=== PATIENT | female | born 2000 | race Caucasian/White ===

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

== ENCOUNTER 2020-06-10 20:39 | Emergency (ER) | payer OTHER ==
[2020-06-10] MEDS ORDERED: SODIUM CHLORIDE 0.9% 1,000 ML IV STA (20:57)
--- NOTE | 2020-06-10 20:58 | ED ---
Female Urogenital HPI - General Chief complaint: Vaginal Bleeding Stated complaint: Vaginal bleeding Time Seen by Provider: 06/10/20 20:52 Source: patient Mode of arrival: ambulatory Limitations: no limitations - History of Present Illness Initial comments: 19-year-old female presenting to the emergency department with a chief complaint of a miscarriage. Patient states she saw her OB, Dr Eula Asencio, and had an ultrasound performed which revealed no heart tones. Patient states she was given the option of having a medication induced , D&C or natural. Patient states she wanted an uninterrupted and waited for the miscarriage to occur. Patient reports that yesterday she developed increased abdominal cramping. Patient reports it comes and goes in waves that lasts approximately 30 seconds. Patient reports there is also increased vaginal bleeding along with clots. Patient states she had an appointment today with her OB but missed the appointment. She did report some nausea but no vomiting. Does not have any vomiting at this time. Denies any urinary symptoms. - Related Data Home Medications Medication Instructions Recorded Confirmed Levothyroxine Sodium [Synthroid] 75 mcg PO DAILY 06/10/20 06/10/20 Previous Rx's Medication Instructions Recorded Cephalexin [Keflex] 500 mg PO BID 5 Days #10 cap 06/10/20 Allergies Allergy/AdvReac Type Severity Reaction Status Date / Time No Known Allergies Allergy Verified 06/10/20 21:56 Review of Systems ROS Statement: Those systems with pertinent positive or pertinent negative responses have been documented in the HPI. ROS Other: All systems not noted in ROS Statement are negative. Past Medical History Past Medical History: Thyroid Disorder Additional Past Medical History / Comment(s): prediabetic History of Any Multi-Drug Resistant Organisms: None Reported Past Surgical History: No Surgical Hx Reported Past Anesthesia/Blood Transfusion Reactions: Motion Sickness Past Psychological History: Anxiety, Depression, PTSD Smoking Status: Never smoker Past Alcohol Use History: None Reported Past Drug Use History: Marijuana - Past Family History Mother Family Medical History: Musculoskeletal Disorder Additional Family Medical History / Comment(s): multiple sclerosis General Exam Limitations: no limitations General appearance: alert, in no apparent distress, obese Head exam: Present: atraumatic, normocephalic, normal inspection Eye exam: Present: normal appearance, PERRL, EOMI Pupils: Present: normal accommodation ENT exam: Present: normal exam, normal oropharynx, mucous membranes moist, TM's normal bilaterally, normal external ear exam Neck exam: Present: normal inspection, full ROM. Absent: tenderness Respiratory exam: Present: normal lung sounds bilaterally. Absent: respiratory distress Cardiovascular Exam: Present: regular rate, normal rhythm, normal heart sounds GI/Abdominal exam: Present: soft, tenderness (Suprapubic tenderness to palpation). Absent: distended, guarding, rebound, rigid Extremities exam: Present: normal inspection, full ROM, normal capillary refill. Absent: tenderness, pedal edema, joint swelling Back exam: Present: normal inspection, full ROM. Absent: tenderness, CVA tenderness (R), CVA tenderness (L) Neurological exam: Present: alert, oriented X3 Psychiatric exam: Present: normal affect, normal mood Skin exam: Present: warm, dry, intact, normal color Course Vital Signs 06/10/20 06/10/20 20:41 23:00 Temperature 97.9 F 98.1 F Pulse Rate 81 79 Respiratory 18 18 Rate Blood Pressure 154/56 89/47 O2 Sat by Pulse 97 99 Oximetry Medical Decision Making - Medical Decision Making 19-year-old female, , 9 week presenting to the emergency department with a chief complaint of miscarriage. On physical examination, patient has suprapubic tenderness to palpation. Pelvic exam reveals an open cervical os but no visible contents. Mild to moderate amount of bleeding. CBC reveals no signs of anemia. CMP is unremarkable. UA does show large amount of blood, white blood cells and red blood cells. Ultrasound reveals a gestational sac seen in the cervical canal but not the fundus likely suggesting an incomplete . Patient did pass a large clot while in the emergency department. This was sent to pathology. Patient will be discharged with a Tylenol 3 starter pack which definitely helped improve her cramping pain. will treat for uti with keflex. Patient was advised to follow-up with her OB. Return parameters discussed the patient is understanding and agreeable. Case discussed with physician. - Lab Data Result diagrams: 06/10/20 21:06/10/20 21:20 Lab Results 06/10/20 06/10/20 06/10/20 Range/Units 21:20 21:20 21:20 WBC 10.8 (4.0-11.0) k/uL RBC 4.69 (3.80-5.40) m/uL Hgb 12.8 (11.4-16.0) gm/dL Hct 38.5 (34.0-46.0) % MCV 82.1 (80.0-100.0) fL MCH 27.3 (25.0-35.0) pg MCHC 33.3 (31.0-37.0) g/dL RDW 15.0 (11.5-15.5) % Plt Count 288 (150-450) k/uL MPV 7.8 Neutrophils % 67 % Lymphocytes % 26 % Monocytes % 4 % Eosinophils % 1 % Basophils % 1 % Neutrophils # 7.2 (1.3-7.7) k/uL Lymphocytes # 2.8 (1.0-4.8) k/uL Monocytes # 0.5 (0-1.0) k/uL Eosinophils # 0.2 (0-0.7) k/uL Basophils # 0.1 (0-0.2) k/uL Sodium 137 (137-145) mmol/L Potassium 4.4 (3.5-5.1) mmol/L Chloride 108 H (98-107) mmol/L Carbon Dioxide 22 (22-30) mmol/L Anion Gap 7 mmol/L BUN 7 (7-17) mg/dL Creatinine 0.67 (0.52-1.04) mg/dL Est GFR (CKD-EPI)AfAm >90 (>60 ml/min/1.73 sqM) Est GFR (CKD-EPI)NonAf >90 (>60 ml/min/1.73 sqM) Glucose 93 (74-99) mg/dL Calcium 9.2 (8.4-10.2) mg/dL Total Bilirubin 0.2 (0.2-1.3) mg/dL AST 17 (14-36) U/L ALT 14 (4-34) U/L Alkaline Phosphatase 65 (38-126) U/L Total Protein 6.7 (6.3-8.2) g/dL Albumin 3.6 (3.5-5.0) g/dL HCG, Quant 3119.2 mIU/mL Urine Color Urine Appearance (Clear) Urine pH (5.0-8.0) Ur Specific [place] (1.001-1.035) Urine Protein (Negative) Urine Glucose (UA) (Negative) Urine Ketones (Negative) Urine Blood (Negative) Urine Nitrite (Negative) Urine Bilirubin (Negative) Urine Urobilinogen (<2.0) mg/dL Ur Leukocyte Esterase (Negative) Urine RBC (0-5) /hpf Urine WBC (0-5) /hpf Blood Type O Positive Blood Type Recheck O Pos Bld Type Recheck Status No Antibody Screen NEGATIVE Spec Expiration Date 06/13/2020 - 231906/10/20 Range/Units 22:34 WBC (4.0-11.0) k/uL RBC (3.80-5.40) m/uL Hgb (11.4-16.0) gm/dL Hct (34.0-46.0) % MCV (80.0-100.0) fL MCH (25.0-35.0) pg MCHC (31.0-37.0) g/dL RDW (11.5-15.5) % Plt Count (150-450) k/uL MPV Neutrophils % % Lymphocytes % % Monocytes % % Eosinophils % % Basophils % % Neutrophils # (1.3-7.7) k/uL Lymphocytes # (1.0-4.8) k/uL Monocytes # (0-1.0) k/uL Eosinophils # (0-0.7) k/uL Basophils # (0-0.2) k/uL Sodium (137-145) mmol/L Potassium (3.5-5.1) mmol/L Chloride (98-107) mmol/L Carbon Dioxide (22-30) mmol/L Anion Gap mmol/L BUN (7-17) mg/dL Creatinine (0.52-1.04) mg/dL Est GFR (CKD-EPI)AfAm (>60 ml/min/1.73 sqM) Est GFR (CKD-EPI)NonAf (>60 ml/min/1.73 sqM) Glucose (74-99) mg/dL Calcium (8.4-10.2) mg/dL Total Bilirubin (0.2-1.3) mg/dL AST (14-36) U/L ALT (4-34) U/L Alkaline Phosphatase (38-126) U/L Total Protein (6.3-8.2) g/dL Albumin (3.5-5.0) g/dL HCG, Quant mIU/mL Urine Color Red Urine Appearance Cloudy H (Clear) Urine pH 6.0 (5.0-8.0) Ur Specific [place] 1.016 (1.001-1.035) Urine Protein 1+ H (Negative) Urine Glucose (UA) Negative (Negative) Urine Ketones Negative (Negative) Urine Blood Large H (Negative) Urine Nitrite Negative (Negative) Urine Bilirubin Negative (Negative) Urine Urobilinogen <2.0 (<2.0) mg/dL Ur Leukocyte Esterase Moderate H (Negative) Urine RBC >182 H (0-5) /hpf Urine WBC >182 H (0-5) /hpf Blood Type Blood Type Recheck Bld Type Recheck Status Antibody Screen Spec Expiration Date Disposition Clinical Impression: Incomplete Disposition: HOME SELF-CARE Condition: Stable Instructions (If sedation given, give patient instructions): Miscarriage (ED) Additional Instructions: Follow up with OB. Take prescribed medication as directed. Return to emergency department if symptoms worsen. Is patient prescribed a controlled substance at d/c from ED?: No Referrals: Donte Saldaña DO [Primary Care Provider] - 1-2 days Time of Disposition: 23:44
[2020-06-10] MEDS ORDERED: Acetaminophen-Codeine 300-30mg TAB PO STA (21:09)
[2020-06-10 21:24] LABS: Basophils # (A) 0.1 k/uL (0-0.2); Basophils % (A) 1 %; Eosinophils # (A) 0.2 k/uL (0-0.7); Eosinophils % (A) 1 %; HCT 38.5 % (34.0-46.0); HGB 12.8 gm/dL (11.4-16.0); Lymphocytes # (A) 2.8 k/uL (1.0-4.8); Lymphocytes % (A) 26 %; MCH 27.3 pg (25.0-35.0); MCHC 33.3 g/dL (31.0-37.0); MCV 82.1 fL (80.0-100.0); Mean Platelet Volume 7.8; Monocytes # (A) 0.5 k/uL (0-1.0); Monocytes % (A) 4 %; Neutrophils # (A) 7.2 k/uL (1.3-7.7); Neutrophils % (A) 67 %; Platelet Count 288 k/uL (150-450); RBC 4.69 m/uL (3.80-5.40); WBC 10.8 k/uL (4.0-11.0)
[2020-06-10 21:33] LABS: ALT 14 U/L (4-34); AST 17 U/L (14-36); African American GFR (CKD) >90 (>60 ml/min/1.73 sqM); Albumin 3.6 g/dL (3.5-5.0); Alkaline Phosphatase 65 U/L (38-126); Anion Gap 7 mmol/L; Blood Urea Nitrogen 7 mg/dL (7-17); Calcium 9.2 mg/dL (8.4-10.2); Carbon Dioxide 22 mmol/L (22-30); Chloride 108 mmol/L (98-107); Glucose 93 mg/dL (74-99); Non-African American GFR(CKD) >90 (>60 ml/min/1.73 sqM); Potassium 4.4 mmol/L (3.5-5.1); Sodium 137 mmol/L (137-145); Total Bilirubin 0.2 mg/dL (0.2-1.3); Total Protein 6.7 g/dL (6.3-8.2)
[2020-06-10 21:49] LABS: HCG,Quantitative Serum 3119.2 mIU/mL
[2020-06-10 22:53] LABS: Appearance,Urine Cloudy (Clear); Bilirubin,Urine Negative (Negative); Blood,Urine Large (Negative); Color,Urine Red; Glucose,Urine (UA) Negative (Negative); Ketones,Urine Negative (Negative); Leukocyte Esterase,Urine Moderate (Negative); Nitrite,Urine Negative (Negative); Protein,Urine 1+ (Negative); RBC,Urine >182 /hpf (0-5); Specific Gravity,Urine 1.016 (1.001-1.035); Urobilinogen,Urine <2.0 mg/dL (<2.0); WBC,Urine >182 /hpf (0-5)
[2020-06-10] MEDS ORDERED: SODIUM CHLORIDE 0.9% 1,000 ML IV ONE (23:00)
--- NOTE | 2020-06-10 23:16 | US ---
EXAMINATION TYPE: Transabdominal DATE OF EXAM: 06/10/2020 10:50 PM COMPARISON: NONE CLINICAL HISTORY: camping, vag bleeding. Cramping and bleeding x 2 days. Hx 1 C Section. . EXAM PERFORMED: Transvaginal (TV) and Transabdominal (TA) EXAM MEASUREMENTS: GESTATIONAL AGE / DATING Physician Established: Not yet established. Dates by LMP: (12 weeks/0 days) EDC: 12/23/2020 Dates by First Scan: This is first scan Dates by Current Scan for: (6 weeks/3 days) EDC: 01/31/2021. Gestational sac seen only, positioned in cervix. MATERNAL ANATOMY Uterus: 12.0 x 7.5 x 4.6 cm. Anteverted. Right Ovary: Not seen Left Ovary: Not seen Post CDS / Adnexa: Fluid seen in cul de sac. Presence of free fluid: Yes, in CDS. Presence of corpus luteal cyst: No GESTATION / SURVEY CRL: Not seen MSD: Appears to be within cervix. 1.97 cm (6 weeks/3 days) Yolk Sac (normal less than 6mm): Not seen. IUP: Gestational sac seen only, within cervix at this time. Date of LMP: 03/18/2020 Beta HcG (if available): 3,119.2 IMPRESSION: Fluid collection within the cervical canal No intrauterine gestational sac in the fundus. This could relate to incomplete .
[2020-06-10] MEDS ORDERED: ACET/COD 300 MG/30 MG STARTER PACK 6 TAB BTL PO STA (23:44)
[2020-06-10 23:59] VITALS: RESP 16
[2020-06-11 00:20] VITALS: BP 117/62; PULSE 85; TEMP 98.8
== END 2020-06-11 00:15 | disposition home or self-care (01) ==
LOC: EC 20:39
DX: O03.4 Incomplete spontaneous abortion without complication (principal); E07.9 Disorder of thyroid, unspecified; Z79.890 Hormone replacement therapy
CPT/HCPCS: 36415; 76801; 76817; 80053; 81001; 84702; 85025; 86850; 86900; 86901; 87086; 99284

== ENCOUNTER 2021-04-22 23:58 | Emergency (ER) | payer OTHER ==
[2021-04-23 01:01] LABS: Appearance,Urine Clear (Clear); Bilirubin,Urine Negative (Negative); Blood,Urine Negative (Negative); Color,Urine Yellow; Glucose,Urine (UA) Negative (Negative); Ketones,Urine Negative (Negative); Leukocyte Esterase,Urine Negative (Negative); Nitrite,Urine Negative (Negative); Protein,Urine Negative (Negative); Specific Gravity,Urine 1.029 (1.001-1.035)
[2021-04-23] MEDS ORDERED: SODIUM CHLORIDE 0.9% 1,000 ML IV STA (03:04)
[2021-04-23] MEDS ORDERED: KETOROLAC 30 MG/ML 1 ML VIAL IVP STA (03:04)
[2021-04-23] MEDS ORDERED: MORPHINE SULFATE 4 MG/ML SYRINGE IV STA (03:04)
--- NOTE | 2021-04-23 03:05 | ED ---
Abdominal Pain HPI - General Chief Complaint: Abdominal Pain Stated Complaint: Side Pain, Dizziness Time Seen by Provider: 04/23/21 02:21 Source: patient, RN notes reviewed, old records reviewed Mode of arrival: ambulatory Limitations: no limitations - History of Present Illness Initial Comments: This is a 20-year-old female DF for evaluation of dull pain left-sided abdominal pain left-sided chest pain radiating to the abdomen severe with sudden onset. Tonight. Patient has had this similar pain for the past 2 weeks. Positive nausea positive vomiting positive shortness of breath increasing abdominal pain. No fevers no other complaints MD Complaint: abdominal pain, flank pain -: days(s) Location: LLQ, L flank Radiation: L flank Migration to: epigastric Severity: severe Severity scale (1-10): 8 Quality: cramping, stabbing Consistency: constant Improves With: nothing Worsens With: nothing Associated Symptoms: nausea Treatments Prior to Arrival: other (none) - Related Data Home Medications Medication Instructions Recorded Confirmed Levothyroxine Sodium [Synthroid] 75 mcg PO DAILY 06/10/20 06/10/20 Previous Rx's Medication Instructions Recorded Cephalexin [Keflex] 500 mg PO BID 5 Days #10 cap 06/10/20 Allergies Allergy/AdvReac Type Severity Reaction Status Date / Time No Known Allergies Allergy Verified 04/23/21 00:27 Review of Systems ROS Statement: Those systems with pertinent positive or pertinent negative responses have been documented in the HPI. ROS Other: All systems not noted in ROS Statement are negative. Past Medical History Past Medical History: Thyroid Disorder Additional Past Medical History / Comment(s): prediabetic History of Any Multi-Drug Resistant Organisms: None Reported Past Surgical History: Section Past Anesthesia/Blood Transfusion Reactions: Motion Sickness Past Psychological History: Anxiety, Depression, PTSD Smoking Status: Never smoker Past Alcohol Use History: None Reported Past Drug Use History: Marijuana - Past Family History Mother Family Medical History: Musculoskeletal Disorder Additional Family Medical History / Comment(s): multiple sclerosis General Exam Limitations: no limitations General appearance: alert, in no apparent distress, anxious Head exam: Present: atraumatic, normocephalic, normal inspection Eye exam: Present: normal appearance, PERRL, EOMI. Absent: scleral icterus, conjunctival injection, periorbital swelling ENT exam: Present: normal exam, mucous membranes moist Neck exam: Present: normal inspection. Absent: tenderness, meningismus, lymphadenopathy Respiratory exam: Present: normal lung sounds bilaterally. Absent: respiratory distress, wheezes, rales, rhonchi, stridor Cardiovascular Exam: Present: normal rhythm, tachycardia, normal heart sounds. Absent: systolic murmur, diastolic murmur, rubs, gallop, clicks GI/Abdominal exam: Present: soft, normal bowel sounds. Absent: distended, tenderness, guarding, rebound, rigid Extremities exam: Present: normal inspection, full ROM, normal capillary refill. Absent: tenderness, pedal edema, joint swelling, calf tenderness Back exam: Present: normal inspection Neurological exam: Present: alert, oriented X3, CN II-XII intact Psychiatric exam: Present: normal affect, normal mood Skin exam: Present: warm, dry, intact, normal color. Absent: rash Course Vital Signs 04/23/21 04/23/21 00:23 05:28 Temperature 100.2 F H 99.0 F Pulse Rate 113 H 91 Respiratory 20 16 Rate Blood Pressure 122/84 119/73 O2 Sat by Pulse 99 Oximetry Medical Decision Making - Medical Decision Making 20 female with nonspecific fever diffuse abdominal pain chest pain. Pain radiating to groin. No specific findings here in the emergency department. Patient given supportive care and can be discharged home - Lab Data Result diagrams: 04/23/21 03:22 04/23/21 03:22 Lab Results 04/23/21 04/23/21 04/23/21 Range/Units 00:27 00:36 01:10 WBC (4.0-11.0) k/uL RBC (3.80-5.40) m/uL Hgb (11.4-16.0) gm/dL Hct (34.0-46.0) % MCV (80.0-100.0) fL MCH (25.0-35.0) pg MCHC (31.0-37.0) g/dL RDW (11.5-15.5) % Plt Count (150-450) k/uL MPV Neutrophils % % Lymphocytes % % Monocytes % % Eosinophils % % Basophils % % Neutrophils # (1.3-7.7) k/uL Lymphocytes # (1.0-4.8) k/uL Monocytes # (0-1.0) k/uL Eosinophils # (0-0.7) k/uL Basophils # (0-0.2) k/uL Sodium (137-145) mmol/L Potassium (3.5-5.1) mmol/L Chloride (98-107) mmol/L Carbon Dioxide (22-30) mmol/L Anion Gap mmol/L BUN (7-17) mg/dL Creatinine (0.52-1.04) mg/dL Est GFR (CKD-EPI)AfAm (>60 ml/min/1.73 sqM) Est GFR (CKD-EPI)NonAf (>60 ml/min/1.73 sqM) Glucose (74-99) mg/dL Plasma Lactic Acid Vikas (0.7-2.0) mmol/L Calcium (8.4-10.2) mg/dL Total Bilirubin (0.2-1.3) mg/dL AST (14-36) U/L ALT (4-34) U/L Alkaline Phosphatase (38-126) U/L Troponin I (0.000-0.034) ng/mL Total Protein (6.3-8.2) g/dL Albumin (3.5-5.0) g/dL Amylase (30-110) U/L Lipase (23-300) U/L Urine Color Yellow Urine Appearance Clear (Clear) Urine pH 6.0 (5.0-8.0) Ur Specific [place] 1.029 (1.001-1.035) Urine Protein Negative (Negative) Urine Glucose (UA) Negative (Negative) Urine Ketones Negative (Negative) Urine Blood Negative (Negative) Urine Nitrite Negative (Negative) Urine Bilirubin Negative (Negative) Urine Urobilinogen 2.0 (<2.0) mg/dL Ur Leukocyte Esterase Negative (Negative) Urine HCG, Qual Not Detected (Not Detectd) Coronavirus (PCR) Not Detected (Not Detectd) 04/23/21 04/23/21 04/23/21 Range/Units 03:22 03:22 03:22 WBC 11.1 H (4.0-11.0) k/uL RBC 4.88 (3.80-5.40) m/uL Hgb 13.3 (11.4-16.0) gm/dL Hct 41.0 (34.0-46.0) % MCV 84.0 (80.0-100.0) fL MCH 27.2 (25.0-35.0) pg MCHC 32.4 (31.0-37.0) g/dL RDW 14.6 (11.5-15.5) % Plt Count 289 (150-450) k/uL MPV 7.8 Neutrophils % 70 % Lymphocytes % 23 % Monocytes % 4 % Eosinophils % 1 % Basophils % 1 % Neutrophils # 7.8 H (1.3-7.7) k/uL Lymphocytes # 2.5 (1.0-4.8) k/uL Monocytes # 0.5 (0-1.0) k/uL Eosinophils # 0.1 (0-0.7) k/uL Basophils # 0.1 (0-0.2) k/uL Sodium 137 (137-145) mmol/L Potassium 3.8 (3.5-5.1) mmol/L Chloride 106 (98-107) mmol/L Carbon Dioxide 23 (22-30) mmol/L Anion Gap 8 mmol/L BUN 10 (7-17) mg/dL Creatinine 0.79 (0.52-1.04) mg/dL Est GFR (CKD-EPI)AfAm >90 (>60 ml/min/1.73 sqM) Est GFR (CKD-EPI)NonAf >90 (>60 ml/min/1.73 sqM) Glucose 98 (74-99) mg/dL Plasma Lactic Acid Vikas 0.9 (0.7-2.0) mmol/L Calcium 9.2 (8.4-10.2) mg/dL Total Bilirubin 0.3 (0.2-1.3) mg/dL AST 18 (14-36) U/L ALT 13 (4-34) U/L Alkaline Phosphatase 78 (38-126) U/L Troponin I (0.000-0.034) ng/mL Total Protein 7.1 (6.3-8.2) g/dL Albumin 4.0 (3.5-5.0) g/dL Amylase 53 (30-110) U/L Lipase 51 (23-300) U/L Urine Color Urine Appearance (Clear) Urine pH (5.0-8.0) Ur Specific [place] (1.001-1.035) Urine Protein (Negative) Urine Glucose (UA) (Negative) Urine Ketones (Negative) Urine Blood (Negative) Urine Nitrite (Negative) Urine Bilirubin (Negative) Urine Urobilinogen (<2.0) mg/dL Ur Leukocyte Esterase (Negative) Urine HCG, Qual (Not Detectd) Coronavirus (PCR) (Not Detectd) 04/23/21 Range/Units 03:22 WBC (4.0-11.0) k/uL RBC (3.80-5.40) m/uL Hgb (11.4-16.0) gm/dL Hct (34.0-46.0) % MCV (80.0-100.0) fL MCH (25.0-35.0) pg MCHC (31.0-37.0) g/dL RDW (11.5-15.5) % Plt Count (150-450) k/uL MPV Neutrophils % % Lymphocytes % % Monocytes % % Eosinophils % % Basophils % % Neutrophils # (1.3-7.7) k/uL Lymphocytes # (1.0-4.8) k/uL Monocytes # (0-1.0) k/uL Eosinophils # (0-0.7) k/uL Basophils # (0-0.2) k/uL Sodium (137-145) mmol/L Potassium (3.5-5.1) mmol/L Chloride (98-107) mmol/L Carbon Dioxide (22-30) mmol/L Anion Gap mmol/L BUN (7-17) mg/dL Creatinine (0.52-1.04) mg/dL Est GFR (CKD-EPI)AfAm (>60 ml/min/1.73 sqM) Est GFR (CKD-EPI)NonAf (>60 ml/min/1.73 sqM) Glucose (74-99) mg/dL Plasma Lactic Acid Vikas (0.7-2.0) mmol/L Calcium (8.4-10.2) mg/dL Total Bilirubin (0.2-1.3) mg/dL AST (14-36) U/L ALT (4-34) U/L Alkaline Phosphatase (38-126) U/L Troponin I <0.012 (0.000-0.034) ng/mL Total Protein (6.3-8.2) g/dL Albumin (3.5-5.0) g/dL Amylase (30-110) U/L Lipase (23-300) U/L Urine Color Urine Appearance (Clear) Urine pH (5.0-8.0) Ur Specific [place] (1.001-1.035) Urine Protein (Negative) Urine Glucose (UA) (Negative) Urine Ketones (Negative) Urine Blood (Negative) Urine Nitrite (Negative) Urine Bilirubin (Negative) Urine Urobilinogen (<2.0) mg/dL Ur Leukocyte Esterase (Negative) Urine HCG, Qual (Not Detectd) Coronavirus (PCR) (Not Detectd) - Radiology Data Radiology results: report reviewed (CT chest and pelvis negative for significant acute disease), image reviewed Disposition Clinical Impression: Abdominal pain, Fever, Atypical chest pain, Nausea & vomiting Disposition: HOME SELF-CARE Condition: Good Instructions (If sedation given, give patient instructions): Abdominal Pain (ED) Is patient prescribed a controlled substance at d/c from ED?: No Referrals: Donte Saldaña DO [Primary Care Provider] - 1-2 days
[2021-04-23 03:39] LABS: Basophils # (A) 0.1 k/uL (0-0.2); Basophils % (A) 1 %; Eosinophils # (A) 0.1 k/uL (0-0.7); Eosinophils % (A) 1 %; HGB 13.3 gm/dL (11.4-16.0); Lymphocytes # (A) 2.5 k/uL (1.0-4.8); Lymphocytes % (A) 23 %; MCH 27.2 pg (25.0-35.0); MCHC 32.4 g/dL (31.0-37.0); Mean Platelet Volume 7.8; Monocytes # (A) 0.5 k/uL (0-1.0); Monocytes % (A) 4 %; Neutrophils # (A) 7.8 k/uL (1.3-7.7); Neutrophils % (A) 70 %; Platelet Count 289 k/uL (150-450); RBC 4.88 m/uL (3.80-5.40); RDW 14.6 % (11.5-15.5); WBC 11.1 k/uL (4.0-11.0)
[2021-04-23 04:14] LABS: ALT 13 U/L (4-34); AST 18 U/L (14-36); African American GFR (CKD) >90 (>60 ml/min/1.73 sqM); Alkaline Phosphatase 78 U/L (38-126); Amylase 53 U/L (30-110); Anion Gap 8 mmol/L; Blood Urea Nitrogen 10 mg/dL (7-17); Calcium 9.2 mg/dL (8.4-10.2); Carbon Dioxide 23 mmol/L (22-30); Chloride 106 mmol/L (98-107); Glucose 98 mg/dL (74-99); Lipase 51 U/L (23-300); Non-African American GFR(CKD) >90 (>60 ml/min/1.73 sqM); Potassium 3.8 mmol/L (3.5-5.1); Sodium 137 mmol/L (137-145); Total Bilirubin 0.3 mg/dL (0.2-1.3); Total Protein 7.1 g/dL (6.3-8.2)
--- NOTE | 2021-04-23 04:20 | CT ---
EXAMINATION TYPE: CT abdomen pelvis w con DATE OF EXAM: 04/23/2021 COMPARISON: None HISTORY: left side pain CT DLP: 2139.4 mGycm Automated exposure control for dose reduction was used. CONTRAST: Performed with IV Contrast, patient injected with 100 mL of Isovue 370. Images obtained from the diaphragm to the floor the pelvis with IV contrast. Lung bases are clear. There is no pleural effusion. Heart size is normal. There is no pericardial eff usion. Liver spleen stomach pancreas gallbladder appear normal. The bile ducts are not dilated. There is no adrenal mass. Kidneys show satisfactory contrast opacification. There is no hydronephrosi s. Delayed images show normal renal excretion. There is no retroperitoneal adenopathy. Bladder disten ds smoothly. There is no inguinal hernia. There is no free fluid in the pelvis. Uterus is anteverted. There is no evidence of a pelvic mass. Appendix is inferior and appears normal. There is no mesenteric edema. There is no ascites or free air. There is no bowel obstruction. Lumbar vertebra have normal alignment. Posterior elements are intact. There is no compression fractur e. The bony pelvis is intact. Hip joints are intact. IMPRESSION: Negative CT scan abdomen and pelvis. Normal appendix.
--- NOTE | 2021-04-23 04:35 | CT ---
EXAMINATION TYPE: CT angio chest DATE OF EXAM: 04/23/2021 COMPARISON: None HISTORY: left side pain CT DLP: 2139.4 mGycm Automated exposure control for dose reduction was used. CONTRAST: Performed with IV Contrast, patient injected with 100 mL of Isovue 370. There are 3-D post processed images. The lungs are clear of infiltrate. There is no pleural effusion or pneumothorax. Heart size is normal . There is no pericardial effusion. There is no mediastinal adenopathy. There are no hilar masses. Thoracic aorta is intact. There is no aneurysm or dissection. There is normal contrast opacification of the pulmonary arteries. There are no filling defects. The thoracic vertebra have normal spacing and alignment. There is no compression fracture. Sternum is intact. Upper abdominal soft tissues are intact. IMPRESSION: Normal exam. No evidence of pulmonary embolism.
[2021-04-23 05:29] VITALS: BP 119/73; PULSE 91; RESP 16; TEMP 99
== END 2021-04-23 05:28 | disposition home or self-care (01) ==
LOC: EC 23:58
DX: R07.89 Other chest pain (principal); R10.32 Left lower quadrant pain; R11.2 Nausea with vomiting, unspecified; R50.9 Fever, unspecified; Z20.822 Contact with and (suspected) exposure to COVID-19; F12.90 Cannabis use, unspecified, uncomplicated; Z79.890 Hormone replacement therapy
CPT/HCPCS: 36415; 80053; 82150; 83605; 83690; 84484; 85025; 81003; 81025; 87635; 71275; 74177; 99285; 96374; 96375; 96361; J2270; J1885; Q9967

== ENCOUNTER 2021-11-20 05:19 | Emergency (ER) | payer OTHER ==
[2021-11-20 05:29] VITALS: PULSE 125; RESP 18
[2021-11-20] MEDS ORDERED: AMOXICILLIN 875 MG TAB PO STA (06:32)
--- NOTE | 2021-11-20 06:38 | ED ---
ENT HPI - General Chief complaint: ENT Stated complaint: Sore Throat Time Seen by Provider: 11/20/21 06:26 Source: patient, RN notes reviewed Mode of arrival: ambulatory Limitations: no limitations - History of Present Illness Initial comments: (20-year-old female presents emergency Department chief complaint of sore throat. Patient states started last 24 hours. Patient's had noted fever. Patient states her swallowing or difficulty swallowing though. Patient states that she has had strep in the past which it feels very similar. She did take Tylenol Motrin just prior arrival denies any cough or cold-like symptoms otherwise. Denies nausea and diarrhea constipation. - Related Data Home Medications Medication Instructions Recorded Confirmed Levothyroxine Sodium [Synthroid] 75 mcg PO DAILY 06/10/20 06/10/20 Previous Rx's Medication Instructions Recorded Cephalexin [Keflex] 500 mg PO BID 5 Days #10 cap 06/10/20 Amoxicillin 500 mg PO Q8H #30 capsule 11/20/21 Allergies Allergy/AdvReac Type Severity Reaction Status Date / Time No Known Allergies Allergy Verified 11/20/21 05:25 Review of Systems ROS Statement: Those systems with pertinent positive or pertinent negative responses have been documented in the HPI. ROS Other: All systems not noted in ROS Statement are negative. Past Medical History Past Medical History: Thyroid Disorder Additional Past Medical History / Comment(s): prediabetic History of Any Multi-Drug Resistant Organisms: None Reported Past Surgical History: Section Past Anesthesia/Blood Transfusion Reactions: Motion Sickness Past Psychological History: Anxiety, Depression, PTSD Smoking Status: Never smoker Past Alcohol Use History: Rare Past Drug Use History: Marijuana - Past Family History Mother Family Medical History: Musculoskeletal Disorder Additional Family Medical History / Comment(s): multiple sclerosis General Exam Limitations: no limitations General appearance: alert, in no apparent distress Head exam: Present: atraumatic, normocephalic, normal inspection Eye exam: Present: normal appearance, PERRL, EOMI. Absent: scleral icterus, conjunctival injection, periorbital swelling ENT exam: Present: mucous membranes moist, TM's normal bilaterally, normal external ear exam. Absent: normal oropharynx (Erythema) Neck exam: Present: normal inspection, full ROM, lymphadenopathy. Absent: tenderness, meningismus Respiratory exam: Present: normal lung sounds bilaterally. Absent: respiratory distress, wheezes, rales, rhonchi, stridor Cardiovascular Exam: Present: regular rate, normal rhythm, normal heart sounds. Absent: systolic murmur, diastolic murmur, rubs, gallop, clicks Course Vital Signs 11/20/21 05:25 Temperature 99.1 F Pulse Rate 125 H Respiratory 18 Rate Blood Pressure 106/73 O2 Sat by Pulse 98 Oximetry Medical Decision Making - Medical Decision Making 20-year-old presented for sore throat. Patient treated for acute pharyngitis. Pharyngitis. Patient was started on amoxicillin initial dose was given return parameters discussed. Disposition Clinical Impression: Acute pharyngitis Disposition: HOME SELF-CARE Condition: Stable Instructions (If sedation given, give patient instructions): Pharyngitis (ED) Additional Instructions: Please return to the Emergency Department if symptoms worsen or any other concerns. Prescriptions: Amoxicillin 500 mg PO Q8H #30 capsule Is patient prescribed a controlled substance at d/c from ED?: No Referrals: Donte Saldaña DO [Primary Care Provider] - 1-2 days Time of Disposition: 06:38
[2021-11-20 06:53] VITALS: BP 104/62; TEMP 98.9
== END 2021-11-20 06:56 | disposition home or self-care (01) ==
LOC: EC 05:19
DX: J02.9 Acute pharyngitis, unspecified (principal); E07.9 Disorder of thyroid, unspecified; Z79.890 Hormone replacement therapy
CPT/HCPCS: 99282

== ENCOUNTER 2024-11-21 18:18 | Emergency (ER) | payer OTHER ==
--- NOTE | 2024-11-21 18:45 | ED ---
Extremity Problem HPI - General Source: patient, EMS, RN notes reviewed Mode of arrival: EMS Limitations: no limitations <Liz Calero - Last Filed: 11/21/24 18:45> <Susie Baxter - Last Filed: 11/21/24 23:13> - General Chief complaint: Skin/Abscess/Foreign Body Stated complaint: L Leg Discoloration/Numbness + Swelling Time Seen by Provider: 11/21/24 18:35 - History of Present Illness Initial comments: Quick Note: This is a 23-year-old female who presents to the emergency department for left leg pain. States that she felt something behind her leg today and noticed a painful lump. States that she started noticed discoloration and discomfort going up and down her leg and she is concerned about a blood clot because she just had a baby. States that it may be a bug bite, but she wants to be safe. (Liz Calero) This is a 23-year-old female presenting to the emergency department via EMS for complaints of left posterior leg pain that started this afternoon. Patient states that she was looking at her leg when she noticed a painful discolored bump. She states that she noticed discoloration extending proximally distally down her leg. Patient is concerned that she may have developed a blood clot as she has just recently had a baby. She denies known injuries however states that she was cleaning the house today and may have hit her leg on something. She denies chest pain, difficulty breathing, heart palpitations, history of DVT or PE. (Susie Baxter) - Related Data Home Medications Medication Instructions Recorded Confirmed Levothyroxine Sodium [Synthroid] 75 mcg PO DAILY 06/10/20 06/10/20 Previous Rx's Medication Instructions Recorded Cephalexin [Keflex] 500 mg PO BID 5 Days #10 cap 06/10/20 Amoxicillin 500 mg PO Q8H #30 capsule 11/20/21 Allergies Allergy/AdvReac Type Severity Reaction Status Date / Time No Known Allergies Allergy Verified 11/21/24 18:39 Review of Systems ROS Other: All systems not noted in ROS Statement are negative. <Liz Calero - Last Filed: 11/21/24 18:45> ROS Other: All systems not noted in ROS Statement are negative. <Susie Baxter - Last Filed: 11/21/24 23:13> ROS Statement: Those systems with pertinent positive or pertinent negative responses have been documented in the HPI. Past Medical History Past Medical History: Thyroid Disorder Additional Past Medical History / Comment(s): prediabetic History of Any Multi-Drug Resistant Organisms: None Reported Past Surgical History: Section Past Anesthesia/Blood Transfusion Reactions: Motion Sickness Past Psychological History: Anxiety, Depression, PTSD Smoking Status: Never smoker Past Alcohol Use History: Rare Past Drug Use History: Marijuana - Past Family History Mother Family Medical History: Musculoskeletal Disorder Additional Family Medical History / Comment(s): multiple sclerosis <Liz Calero - Last Filed: 11/21/24 18:45> General Exam Limitations: no limitations <Liz Calero - Last Filed: 11/21/24 18:45> General appearance: alert, in no apparent distress Neck exam: Present: normal inspection. Absent: tenderness, meningismus, lymphadenopathy Respiratory exam: Present: normal lung sounds bilaterally. Absent: respiratory distress, wheezes, rales, rhonchi, stridor Cardiovascular Exam: Present: regular rate, normal rhythm, normal heart sounds. Absent: systolic murmur, diastolic murmur, rubs, gallop, clicks GI/Abdominal exam: Present: soft, normal bowel sounds. Absent: distended, tenderness, guarding, rebound, rigid Left Lower Leg exam: Present: tenderness, ecchymosis Neurovascular tendon exam: Present: no vascular compromise. Absent: pulse deficit, abnormal cap refill Gait: observed and normal Back exam: Present: normal inspection <Susie Baxter - Last Filed: 11/21/24 23:13> - General Exam Comments Initial Comments: Visual Physical Exam Vital signs reviewed General: Well-appearing, nontoxic, no acute distress. Head: Normocephalic, atraumatic Eyes: PERRLA, EOMI ENT: Airway patent Chest: Nonlabored breathing Skin: No visual rash, normal skin tone Neuro: Alert and oriented 3 Musculoskeletal: No gross abnormalities (Liz Calero) Course Vital Signs 11/21/24 11/21/24 18:36 22:15 Temperature 99.2 F 98.9 F Pulse Rate 78 76 Respiratory 16 19 Rate Blood Pressure 114/70 116/77 O2 Sat by Pulse 99 99 Oximetry Medical Decision Making <Liz Calero - Last Filed: 11/21/24 18:45> <Susie Baxter - Last Filed: 11/21/24 23:13> - Medical Decision Making I performed the QuickNote portion of this chart. Signed Liz Calero PA-C. (Liz Calero) Was pt. sent in by a medical professional or institution ([facility], [employer], urgent care, hospital, or [place] [facility] care facility...) When possible be specific @ -No Did you speak to anyone other than the patient for history (EMS, parent, family, police, friend...)? What history was obtained from this source @ -No Did you review nursing and triage notes (agree or disagree)? Why? @ -I reviewed and agree with nursing and triage notes Were old charts reviewed (outside hosp., previous admission, EMS record, old EKG, old radiological studies, urgent care reports/EKG's, [place] [facility] care facility records)? Report findings @ -No old charts were reviewed Differential Diagnosis (chest pain, altered mental status, abdominal pain women, abdominal pain men, vaginal bleeding, weakness, fever, dyspnea, syncope, headache, dizziness, GI bleed, back pain, seizure, CVA, palpatations, mental health, musculoskeletal)? @ -Superficial thrombophlebitis, DVT, ecchymosis, bug bite, this list not all inclusive EKG interpreted by me (3pts min.). @ -None X-rays interpreted by me (1pt min.). @ -None done CT interpreted by me (1pt min.). @ -None done U/S interpreted by me (1pt. min.). @ -Ultrasound duplex of the left lower extremity no evidence for DVT with no suspicious abnormality over the area of concern. What testing was considered but not performed or refused? (CT, X-rays, U/S, labs)? Why? @ -None What meds were considered but not given or refused? Why? @ -None Did you discuss the management of the patient with other professionals (professionals i.e. [facility], [employer] WORKER, lab, RT, psych nurse, high school social studies tutor, hydraulic chair assembler, teacher, transit police officer, case work aide)? Give summary @ -No Was smoking cessation discussed for >3mins.? @ -No Was critical care preformed (if so, how long)? @ -No Were there social determinants of health that impacted care today? How? (Homel essness, low income, unemployed, alcoholism, drug addiction, transportation, low edu. Level, literacy, decrease access to med. care, penitentiary, rehab)? @ -No Was there de-escalation of care discussed even if they declined (Discuss DNR or withdrawal of care, Hospice)? DNR status @ -No What co-morbidities impacted this encounter? (DM, HTN, Smoking, COPD, CAD, Cancer, CVA, ARF, Chemo, Hep., AIDS, mental health diagnosis, sleep apnea, morbid obesity)? @ -None Was patient admitted / discharged? Hospital course, mention meds given and route, prescriptions, significant lab abnormalities, going to OR and other pertinent info. @ -Discharge. 23-year-old female presenting to the ER with complaints of left leg pain. Patient is originally evaluated in the emergency department waiting room as a quick note where ultrasound imaging is ordered. There is a noted area of ecchymosis of the posterior left calf with mild surrounding swelling with no evidence of erythema or heat bite. Ultrasound imaging no evidence of DVT or suspicious abnormalities with your concern. Symptoms likely secondary to ecchymosis/bruising recommend patient continue supportive treatment with ice, Tylenol, and Motrin as needed. She is stable for discharge. Case discussed with Dr. Duran Undiagnosed new problem with uncertain prognosis? @ -No Drug Therapy requiring intensive monitoring for toxicity (Heparin, Nitro, Insulin, Cardizem)? @ -No Were any procedures done? @ -No Diagnosis/symptom? @ -Ecchymosis Acute, or Chronic, or Acute on Chronic? @ -Acute Uncomplicated (without systemic symptoms) or Complicated (systemic symptoms)? @ -Uncomplicated Side effects of treatment? @ -No Exacerbation, Progression, or Severe Exacerbation? @ -No Poses a threat to life or bodily function? How? (Chest pain, [place], [place], pneumonia, PE, COPD, DKA, ARF, appy, cholecystitis, CVA, Diverticulitis, Homicidal, Suicidal, threat to staff... and all critical care pts) @ -No (Susie Baxter) Disposition <Liz Calero - Last Filed: 11/21/24 18:45> Is patient prescribed a controlled substance at d/c from ED?: No Time of Disposition: 22:03 <Susie Baxter - Last Filed: 11/21/24 23:13> Clinical Impression: Ecchymosis Disposition: HOME SELF-CARE Condition: Good Instructions (If sedation given, give patient instructions): Ecchymosis (ED) Additional Instructions: Please return to the Emergency Department if symptoms worsen or any other concerns. Referrals: None,Stated [Primary Care Provider] - 1-2 days
--- NOTE | 2024-11-21 21:13 | US ---
EXAMINATION TYPE: US extremity nonvasc mass LT DATE OF EXAM: 11/21/2024 COMPARISON: NONE CLINICAL INDICATION: Female, 23 years old with history of Lump on left leg; patient states lump left calf that is painful since 5pm TECHNIQUE: scanned patients area of concern in the left calf FINDINGS: no sonographic abnormalities visualized at this time IMPRESSION: 1. No suspicious ultrasound abnormality at the level of the swelling and pain. [facility], , 11/21/2024 9:10 PM
--- NOTE | 2024-11-21 21:34 | US ---
EXAMINATION TYPE: US venous doppler duplex LE LT DATE OF EXAM: 11/21/2024 8:03 PM COMPARISON: NONE CLINICAL INDICATION: Female, 23 years old with history of Leg pain and discoloration; patient states left leg lump and pain. no hx dvt. , Pain TECHNIQUE: The lower extremity deep venous system is examined utilizing real time linear array sonog hellen with graded compression, color doppler sonography, and spectral doppler. SIDE PERFORMED: Left FINDINGS: VESSELS IMAGED: Common Femoral Vein Deep Femoral Vein Greater Saphenous Vein * Femoral Vein Popliteal Vein Small Saphenous Vein * Proximal Calf Veins (* superficial vessels) Left Leg: Appears negative for dvt, Color Doppler imaging shows patency of the vessels. Spectral wav eforms are within normal limits. IMPRESSION: 1. Left lower extremity ultrasound negative for deep venous thrombosis. [facility], , 11/21/2024 9:32 PM
[2024-11-21 22:16] VITALS: BP 116/77; PULSE 76; RESP 19; TEMP 98.9
== END 2024-11-21 23:08 | disposition home or self-care (01) ==
LOC: EC 18:18
DX: R58 Hemorrhage, not elsewhere classified (principal)
CPT/HCPCS: 99283